=== PATIENT | female | born 1955 | race Caucasian/White ===

== ENCOUNTER 2017-11-09 18:50 | Emergency (ER) | payer MEDICARE, MEDICAID ==
[2017-11-09 19:56] VITALS: BP 142/69
--- NOTE | 2017-11-09 20:39 | UC ---
Respiratory Complaint HPI - HPI Summary HPI Summary: 62 y/o female presents to the urgent care accompany by niece c/o productive cough w/ mild SOB, and wheezing for the past week. Pt reports she went to [facility] 2 days ago. She was Rx Z-felix,hydrocodone and given a shot of Solumedrol. However, she has been taking the ABX, but she started to develop wheezing and her cough is getting worse at night . She is an everyday smoker. she has cut down to 4 cigarettes/day. She also feels Rt side era pain at times that radiates to the RT side of her neck. Pt denies fever, CHOWDHURY dizziness, SOB, chest pain, abdominal pain,, N/V/D - History of Current Complaint Chief Complaint: UCGeneralIllness Stated Complaint: ST,COUGH Time Seen by Provider: 11/09/17 20:37 Hx Obtained From: Patient, Family/Inspector [employer] - niece Onset/Duration: Gradual Onset, Lasting Weeks - 1 week, Still Present, Worse Since - 2 days Timing: Intermittent Episodes Severity Initially: Mild Severity Currently: Mild Pain Intensity: 3 Pain Scale Used: 0-10 Numeric Character: Cough: Productive, Sputum Description: - yellowish Aggravating Factors: Recumbent Position Alleviating Factors: Bronchodilator Associated Signs And Symptoms: Positive: Wheezing, URI, Nasal Congestion - Risk Factors Pulmonary Embolism Risk Factors: Negative Cardiac Risk Factors: Hypertension, Smoking Pseudomonas Risk Factors: Negative Tuberculosis Risk Factors: Negative - Allergies/Home Medications Allergies/Adverse Reactions: Allergies Allergy/AdvReac Type Severity Reaction Status Date / Time diphenhydramine AdvReac FEELS Verified 11/09/17 19:43 [From Benadryl] FAINT,LACK OF CONTROL OF MOTOR MOVEMENTS. Home Medications: Home Medications Amlodipine Besylate [Norvasc] 5 mg PO DAILY 11/09/17 [History Confirmed 11/09/17 ] Azithromycin TAB* [Zithromax TAB (Z-FELIX) 250 mg #6 tabs] 250 mg PO DAILY [History Confirmed 11/09/17] Fluticasone-Salmeterol 250-50* [Advair Diskus 250-50*] 1 puff INH BID 11/09/17 [ History Confirmed 11/09/17] PMH/Surg Hx/FS Hx/Imm Hx Previously Healthy: Yes Cardiovascular History: Hypertension Respiratory History: COPD - Surgical History Surgical History: Yes Surgery Procedure, Year, and Place: T&A. B/L CATARACT REMOVAL--2002 - Family History Known Family History: Positive: Cardiac Disease, Hypertension, Diabetes - Social History Occupation: Retired Lives: With Family Alcohol Use: Rare Substance Use Type: None Smoking Status (MU): Current Every Day Smoker Type: Cigarettes Amount Used/How Often: 4 CIGS PER DAY Length of Time of Smoking/Using Tobacco: 47 YRS Have You Smoked in the Last Year: Yes Review of Systems Constitutional: Negative Skin: Negative Eyes: Negative ENT: Ear Ache - RT ear pain, Nasal Discharge, Sinus Congestion Respiratory: Cough - productive, Other - wheezing Cardiovascular: Negative Gastrointestinal: Negative Genitourinary: Negative Motor: Negative Neurovascular: Negative Musculoskeletal: Negative Neurological: Negative Psychological: Negative Is Patient Immunocompromised?: No All Other Systems Reviewed And Are Negative: Yes Physical Exam - Summary Physical Exam Summary: Vital Signs Reviewed: Yes General: well developed, well nourished female sitting in the examining table w/ o any apparent distress Eyes: Positive: Conjunctiva Clear - PERRLA, EOMI, fundi grossly normal ENT: Positive: Normal ENT inspection, Hearing grossly normal, Pharynx normal, Nasal congestion - edematous and erythematous nasal mucosa, Nasal drainage - yellowish drainage, TMs normal. Negative: Tonsillar swelling, Tonsillar exudate Neck: Positive: Supple, Nontender, No Lymphadenopathy Respiratory: no orthopnea or dyspnea. Able to speak in full sentences, no retractions or accessory muscle use, no tripod position, stridor, or head bobbing. positive breath sounds bilaterally, B/l lunsgs w/ scattered wheezing, and mild rhonchi, no crackles or rales Cardiovascular: Positive: RRR, No Murmur, Pulses Normal, Brisk Capillary Refill Abdomen Description: Positive: Nontender, No Organomegaly, Soft. Negative: CVA Tenderness (R), CVA Tenderness (L) Bowel Sounds: Positive: Present Musculoskeletal Exam: Normal Musculoskeletal: Positive: Strength Intact, ROM Intact, No Edema Neurological Exam: Normal Psychological Exam: Normal Skin Exam: Normal Triage Information Reviewed: Yes Vital Signs: Initial Vital Signs Temp 98.7 F 11/09/17 19:46 Pulse 85 11/09/17 19:46 Resp 22 11/09/17 19:46 BP 142/69 11/09/17 19:46 Pulse Ox 95 11/09/17 19:46 Diagnostic Evaluation - Laboratory O2 Sat by Pulse Oximetry: 95 Respiratory Course/Dx - Course Course Of Treatment: 62 y/o female presents to the urgent care accompany by niece c/o productive cough w/ mild SOB, and wheezing for the past week. Pt reports she went to [facility] 2 days ago. She was Rx Z-felix,hydrocodone and given a shot of Solumedrol. However, she has been taking the ABX, but she started to develop wheezing and her cough is getting worse at night . She is an everyday smoker. she has cut down to 4 cigarettes/day. She also feels Rt side era pain at times that radiates to the RT side of her neck. Pt denies fever, CHOWDHURY dizziness, SOB, chest pain, abdominal pain,, N/V/D. Hx obtained. Pt w/ B/L lunsgs w/ scattered wheezing, and mild rhonchi, no crackles or rales. Pt w/ probably and COPD exacerbation due to bronchitis. Pt already taking Z-felix. O2sat : 95% Pt is a heavy everyday smoker. Prednisone 60 mg PO ordered and Duneb treatment ordered. Pt tolerated well medications and her lungs improved. Pt states feeling better. Pt will be tX for Acute Bronchitis, advised to comtinue taking Z-felix, and Rx Prednisone taper dose, Tessalon tabs and Duo neb. Strongly advised to f/u with her PCP for further management on her COPD. She also has elevated BP today, advised to decrease salt in her diet and monitor BP, if it continues to be elevated to f/u with her PCP. Pt understood and agreed with D/C instructions and left the clinic hemodynamically stable. - Differential Dx/Diagnosis Differential Diagnosis/HQI/PQRI: Asthma, Bronchitis, Influenza, Lower Resp Infection, Sinusitis, Other - pneumonai Provider Diagnoses: 1- COPD ewxacerbation due to bronchitis. 2- Cough. 3- Uncontrolled HTN Discharge - Sign-Out/Discharge Documenting (check all that apply): Discharge/Admit/Transfer - D/C home - Discharge Plan Condition: Stable Disposition: HOME Prescriptions: Albuterol/Ipratropium NEB.NNEKA* [Duoneb (Albuterol 2.5 MG/Ipratropium 0.5 MG)] 1 neb INH Q6H PRN #1 felix PRN Reason: Wheezing Benzonatate CAP* [Tessalon 100 MG CAP*] 100 mg PO TID PRN #21 cap PRN Reason: Cough predniSONE TAB* [Deltasone TAB*] 20 mg PO DAILY #8 tab Patient Education Materials: COPD (Chronic Obstructive Pulmonary Disease) (ED) , Low-Sodium Diet (ED) Referrals: Alicia Maguire MD [Primary Care Provider] - 2 Days Additional Instructions: 1-Continue taking Azithromycin PO as directed 2-Take Tessalon PO tabs as directed and continue w/ Duo neb treatments as directed at home to alleviate cough and wheezing. Increase fluid intake, rest and eat well. Avoid smoking as much as you can 3- If symptoms do not improve or worsen or your develop SOB with fever and severe wheezing please go immediately to the ER further evaluation and treatment. 4- F/u with your PCP in 2-3 days for further management on your COPD 5-Your BP is elevated today. please decrease salt in your diet, monitor BP and if it continues to be elevated please f/u with your PCP for further management - Billing Disposition and Condition Condition: STABLE Disposition: HOME
[2017-11-09] MEDS ORDERED: predniSONE TAB* 20 MG PO ONE (20:56)
[2017-11-09] MEDS ORDERED: Albuterol/Ipratropium NEB.SOL* Albuterol 2.5 MG/Ipratropium 0.5 MG 3 ML INH ONE (20:57)
== END 2017-11-09 21:43 | disposition home or self-care (01) ==
LOC: UCCORT 18:50
DX: J44.1 Chronic obstructive pulmonary disease with (acute) exacerbation (principal); I10 Essential (primary) hypertension; F17.210 Nicotine dependence, cigarettes, uncomplicated; Z88.8 Allergy status to other drugs, medicaments and biological substances
CPT/HCPCS: 99212; A9270-GY; G0463; J7512